=== PATIENT | male | born 1940 | race Caucasian/White ===

== ENCOUNTER 2019-09-01 15:06 | Emergency (ER) | payer MEDICARE, OTHER ==
[~2019-09-01] VITALS: Ht 172.7 cm; Wt 51.0 kg
[~2019-09-01 15:06] MED LIST: ALBU8.5H8 INH; BUDE10.22 INH; LACT1CAP26 PO; LEVO750T46 PO; METO-395 PO; NOR5T PO; PRED10TA23 PO
[2019-09-01 16:44] LABS: BASOPHILS % (AUTO) 0.6 % (0-1); EOSINOPHILS # (AUTO) 0.1 X10'3 (0-0.9); EOSINOPHILS % (AUTO) 0.7 % (0-6); HEMOGLOBIN 13.2 g/dl (14.0-17.9); LYMPHOCYTES # (AUTO) 1.4 X10'3 (1.1-4.8); LYMPHOCYTES % (AUTO) 17.4 % (21-51); MEAN CORPUSCULAR HEMOGLOBIN 28.8 PG (27.0-31.0); MEAN CORPUSCULAR HGB CONC 32.9 g/dL (33.0-36.5); MEAN CORPUSCULAR VOLUME 87.6 FL (78-98); MEAN PLATELET VOLUME 7.9 FL (7.4-10.4); MONOCYTES # (AUTO) 0.8 X10'3 (0-0.9); MONOCYTES % (AUTO) 9.5 % (2-12); NEUTROPHILS # (AUTO) 5.7 X10'3 (1.8-7.7); NEUTROPHILS % (AUTO) 71.8 % (42-75); PLATELET COUNT 207 X10'3 (140-440); RED BLOOD COUNT 4.57 X10'6 (4.70-6.10); RED CELL DISTRIBUTION WIDTH 15.7 % (11.5-14.5); WHITE BLOOD COUNT 7.9 X10'3 (4.5-11.0)
[2019-09-01] MEDS ORDERED: LORazepam 0.5 MG tablet PO STA (16:56)
[2019-09-01] MEDS ORDERED: albuterol 2.5 MG/3 ML nebule NEB ONE (17:00)
[2019-09-01 17:01] LABS: ALANINE AMINOTRANSFERASE 20 U/L (12-78); ALBUMIN 3.7 G/DL (3.4-5.0); ALKALINE PHOSPHATASE 96 IU/L (46-116); ANION GAP 6 (8-16); ASPARTATE AMINO TRANSFERASE 23 U/L (10-37); BILIRUBIN,TOTAL 0.3 MG/DL (0.1-1.0); BLOOD UREA NITROGEN 25 MG/DL (7-18); BUN/CREATININE RATIO 22.3 (5.4-32.0); CALCIUM 8.5 MG/DL (8.5-10.1); CHLORIDE 108 MMOL/L (99-107); CREATININE 1.12 MG/DL (0.60-1.10); GLUCOSE 127 MG/DL (70-104); POTASSIUM 4.1 MMOL/L (3.5-5.1); SODIUM 143 MMOL/L (135-145); TOTAL CARBON DIOXIDE 28.8 MMOL/L (24-32); TOTAL PROTEIN 7.3 G/DL (6.4-8.2); eGFR 64 ML/MIN
[2019-09-01] MEDS ORDERED: ALBU8HFA PO (18:00)
[2019-09-01 18:30] VITALS: BP 176/107
== END 2019-09-01 18:27 | disposition home or self-care (01) ==
LOC: ER 15:07
DX: R06.82 Tachypnea, not elsewhere classified (principal); R07.9 Chest pain, unspecified; R32 Unspecified urinary incontinence; I10 Essential (primary) hypertension; J44.9 Chronic obstructive pulmonary disease, unspecified; F17.200 Nicotine dependence, unspecified, uncomplicated; Z79.2 Long term (current) use of antibiotics; Z79.899 Other long term (current) drug therapy
CPT/HCPCS: 36415; 71046; 80053; 84484; 85025; 93005; 94640; 94760; 99285

== ENCOUNTER 2019-09-21 10:50 | Emergency (ER) | payer MEDICARE, OTHER ==
[~2019-09-21] VITALS: Ht 175.3 cm; Wt 65.9 kg
[~2019-09-21 10:50] MED LIST changes: +ALBU8HFA PO; -PRED10TA23 PO
[2019-09-21 11:13] LABS: BASOPHILS % (AUTO) 0.4 % (0-1); EOSINOPHILS % (AUTO) 0.1 % (0-6); HEMATOCRIT 38.2 % (42.0-52.0); HEMOGLOBIN 12.8 g/dl (14.0-17.9); LYMPHOCYTES # (AUTO) 1.1 X10'3 (1.1-4.8); LYMPHOCYTES % (AUTO) 11.3 % (21-51); MEAN CORPUSCULAR HEMOGLOBIN 28.5 PG (27.0-31.0); MEAN CORPUSCULAR HGB CONC 33.4 g/dL (33.0-36.5); MEAN CORPUSCULAR VOLUME 85.4 FL (78-98); MEAN PLATELET VOLUME 7.5 FL (7.4-10.4); MONOCYTES % (AUTO) 10.2 % (2-12); NEUTROPHILS # (AUTO) 7.8 X10'3 (1.8-7.7); PLATELET COUNT 253 X10'3 (140-440); RED BLOOD COUNT 4.47 X10'6 (4.70-6.10); RED CELL DISTRIBUTION WIDTH 14.9 % (11.5-14.5)
[2019-09-21] MEDS ORDERED: magnesium 2GM in 50ml NS 50 ML IV ONE (11:15)
[2019-09-21] MEDS ORDERED: methylPREDNISolone sod succ 125mg/2ml vial IV ONE (11:20)
[2019-09-21] MEDS ORDERED: ipratropium/albuterol 3ml nebule NEB ONE (11:20)
[2019-09-21 11:27] LABS: ALANINE AMINOTRANSFERASE 25 U/L (12-78); ALBUMIN 3.3 G/DL (3.4-5.0); ALBUMIN/GLOBULIN RATIO 0.8 (1.1-1.5); ALKALINE PHOSPHATASE 94 IU/L (46-116); ANION GAP 9 (8-16); ASPARTATE AMINO TRANSFERASE 31 U/L (10-37); BILIRUBIN,TOTAL 0.8 MG/DL (0.1-1.0); BLOOD UREA NITROGEN 14 MG/DL (7-18); BUN/CREATININE RATIO 12.8 (5.4-32.0); CALCIUM 8.5 MG/DL (8.5-10.1); CHLORIDE 103 MMOL/L (99-107); CREATININE 1.09 MG/DL (0.60-1.10); GLUCOSE 127 MG/DL (70-104); POTASSIUM 3.5 MMOL/L (3.5-5.1); SODIUM 139 MMOL/L (135-145); TOTAL CARBON DIOXIDE 27.1 MMOL/L (24-32); TOTAL PROTEIN 7.6 G/DL (6.4-8.2); eGFR 66 ML/MIN
[2019-09-21 11:33] LABS: MAGNESIUM 1.8 MG/DL (1.5-2.4)
[2019-09-21] MEDS ORDERED: diltiazem 5mg/ml 5ml inj. IV ONE ×2 (13:10→13:30)
[2019-09-21 13:14] LABS: D-DIMER 1.85 MG/L FEU (0-0.50)
[2019-09-21] MEDS ORDERED: PRED20TA PO (13:50)
[2019-09-21] MEDS ORDERED: DOXY100C43 PO (13:50)
[2019-09-21] MEDS ORDERED: iohexol 350MG/ML 100ml bottle IV ONE (14:13)
[2019-09-21 16:15] VITALS: BP 164/97
== END 2019-09-21 16:17 | disposition home or self-care (01) ==
LOC: ER 10:50
DX: J44.1 Chronic obstructive pulmonary disease with (acute) exacerbation (principal); I10 Essential (primary) hypertension; M25.512 Pain in left shoulder; R07.89 Other chest pain; Z79.899 Other long term (current) drug therapy
CPT/HCPCS: 36415; 71045; 71275; 73030; 80053; 83735; 83880; 84145; 84484; 85025; 85379; 85610; 87635; 93005; 94640; 96365; 96366; 96375; 99285; C9803; J2930; J3475; Q9967; 94760; J3490